=== PATIENT | female | born 1980 | race Caucasian/White ===

== ENCOUNTER 2018-10-24 17:44 | Emergency (ER) | payer BC ==
[~2018-10-24] VITALS: Ht 167.6 cm; Wt 63.5 kg
--- NOTE | 2018-10-24 18:10 | NUR ---
DR ENRIQUE AT BEDSIDE SPEAKING TO PATIENT
--- NOTE | 2018-10-24 19:07 | NUR ---
DC, RX (INCLUDING PRECAUTIONS) AND FOLLOW UP INSTRUCTIONS GIVEN AND EXPLAINED TO PATIENT WHO STATES SHE UNDERSTANDS ALL INSTRUCTIONS.
== END 2018-10-24 19:15 | disposition home or self-care (01) ==
LOC: ER 17:44
DX: S16.1XXA Strain of muscle, fascia and tendon at neck level, initial encounter (principal); V49.69XA Unspecified car occupant injured in collision with other motor vehicles in traffic accident, initial encounter; Y93.89 Activity, other specified; Y92.410 Unspecified street and highway as the place of occurrence of the external cause; Y99.8 Other external cause status
CPT/HCPCS: 72050; A4663